=== PATIENT | female | born 1985 | race African-American/Black ===

== ENCOUNTER 2020-07-05 11:32 | Emergency (ER) | payer MEDICAID, OTHER ==
[~2020-07-05] VITALS: Ht 170.2 cm; Wt 82.1 kg
--- NOTE | 2020-07-05 11:50 | NUR ---
Dr Blackman at the bedside for MSE.
--- NOTE | 2020-07-05 12:11 | NUR ---
Pt out of ER for CT.
--- NOTE | 2020-07-05 12:25 | NUR ---
Pt back from CT, resting in bed.
[2020-07-05] MEDS: AMLODIPINE 5 MG TABLET PO ONE (12:34)
[2020-07-05] MEDS ORDERED: AMLO-212 PO (12:34)
[2020-07-05] MEDS ORDERED: AMLODIPINE 5 MG TABLET ONE (12:39)
[2020-07-05 12:40] VITALS: BP 159/89
--- NOTE | 2020-07-05 12:41 | NUR ---
Patient discharged to home in stable condition. Written and verbal after care instructions given. Patient verbalizes understanding of instructions. Stressed follow up or return to ER for worsening s/s.
== END 2020-07-05 12:41 | disposition home or self-care (01) ==
LOC: ER 11:32
DX: R51.9 Headache, unspecified (principal); R03.0 Elevated blood-pressure reading, without diagnosis of hypertension; Z86.69 Personal history of other diseases of the nervous system and sense organs
CPT/HCPCS: 70450; A4663

== ENCOUNTER 2022-09-22 22:37 | Emergency (ER) | payer MEDICAID, OTHER ==
[~2022-09-22] VITALS: Ht 170.2 cm; Wt 75.3 kg
[~2022-09-22 22:37] MED LIST: AMLO-212 PO
[2022-09-23 01:14] LABS: HEMATOCRIT 36.1 % (31.2-41.9); MEAN CORPUSCULAR HEMOGLOBIN 31.2 uug (24.7-32.8); MEAN CORPUSCULAR VOLUME 93.8 fL (75.5-95.3); PLATELET COUNT (AUTO) 254 K/uL (179-408)
[2022-09-23 01:20] LABS: CARBON DIOXIDE 27 mmol/L (21-32); CHLORIDE 105 mmol/L (98-107); CREATININE 0.6 mg/dL (0.6-1.3); POTASSIUM 3.2 mmol/L (3.5-5.1); UREA NITROGEN, BLOOD 7 mg/dL (7-18)
[2022-09-23 01:26] LABS: ALANINE AMINOTRANSFERASE 24 U/L (14-59); ALKALINE PHOSPHATASE 55 U/L (50-136); ASPARTATE AMINOTRANSFERASE 10 U/L (15-37); BILIRUBIN,DIRECT 0.1 mg/dL (0.0-0.2); BILIRUBIN,TOTAL 0.1 mg/dL (0.2-1.0); TOTAL PROTEIN, SERUM 6.5 g/dL (6.4-8.2)
--- NOTE | 2022-09-23 03:10 | NUR ---
Patient discharged to home in stable condition. Written and verbal after care instructions given. Patient verbalizes understanding of instructions. Stressed follow up or return to ER for worsening s/s. patient walked out with steady gait.
[2022-09-23 03:20] VITALS: BP 136/90; TEMP 97.2; O2SAT 98
== END 2022-09-23 03:21 | disposition home or self-care (01) ==
LOC: ER 22:37
DX: O20.0 Threatened abortion (principal); O99.511 Diseases of the respiratory system complicating pregnancy, first trimester; J45.909 Unspecified asthma, uncomplicated; G43.909 Migraine, unspecified, not intractable, without status migrainosus; Z79.899 Other long term (current) drug therapy; Z3A.11 11 weeks gestation of pregnancy
CPT/HCPCS: 36415; 76856; 85025; 85730; 86850; 86900; 86901; A4663

== ENCOUNTER 2025-01-22 11:11 | Emergency (ER) | payer BC, MEDICAID ==
[~2025-01-22] VITALS: Ht 170.2 cm; Wt 77.1 kg
[2025-01-22 11:20] VITALS: BP 168/100; O2SAT 97
[2025-01-22] MEDS ORDERED: TRAN650T2 PO (20:24)
== END 2025-01-22 13:24 | disposition left against medical advice (07) ==
LOC: ER 11:11
DX: O20.8 Other hemorrhage in early pregnancy (principal); I10 Essential (primary) hypertension; J45.909 Unspecified asthma, uncomplicated; Z87.59 Personal history of other complications of pregnancy, childbirth and the puerperium; Z3A.00 Weeks of gestation of pregnancy not specified
CPT/HCPCS: 76856; A4606; A4663

== ENCOUNTER 2025-01-22 17:49 | Emergency (ER) | payer BC, MEDICAID ==
[~2025-01-22] VITALS: Ht 170.2 cm; Wt 77.1 kg
[2025-01-22 18:20] LABS: PLATELET COUNT (AUTO) 268 K/uL (179-408); RED BLOOD CELL COUNT(AUTO) 3.89 MIL/uL (3.63-4.92); RED CELL DISTRIBUTION WIDTH 13.2 % (12.3-17.7); WHITE BLOOD COUNT (AUTO) 9.9 K/uL (3.8-11.8)
[2025-01-22] MEDS: IV NORMAL SALINE 1000 ML BAG IV ONE (18:26)
[2025-01-22 18:36] LABS: ASPARTATE AMINOTRANSFERASE 10.0 U/L (15-37); CREATININE 0.7 mg/dL (0.6-1.3); SODIUM SERUM 140.0 mmol/L (136-145); TOTAL PROTEIN, SERUM 6.8 g/dL (6.4-8.2); UREA NITROGEN, BLOOD 8.0 mg/dL (7-18)
[2025-01-22] MEDS: POTASSIUM BICARBONATE/CIT AC 25 MEQ TABLET.EFF PO ONE (19:36)
[2025-01-22 20:15] VITALS: BP 120/65
[2025-01-22] MEDS ORDERED: TRANEXAMIC ACID 1,000 MG/10 ML VIAL ONE (20:24)
[2025-01-22] MEDS ORDERED: TRAN650T2 PO (20:24)
[2025-01-22] MEDS: TRANEXAMIC ACID 1,000 MG/10 ML VIAL IV ONE (20:30)
[2025-01-22] MEDS ORDERED: IBUPROFEN 400 MG TABLET ONE (21:11)
[2025-01-22] MEDS: IBUPROFEN 400 MG TABLET PO ONE (21:14)
[2025-01-22] MEDS ORDERED: KETOROLAC TROMETHAMINE 30 MG INJ ONE (21:50)
[2025-01-22] MEDS: KETOROLAC TROMETHAMINE 30 MG INJ IM ONE (21:55)
[2025-01-22] MEDS: TRAMADOL HCL 50 MG TABLET PO ONE (22:07)
[2025-01-22 22:32] VITALS: BP 119/68; O2SAT 98
== END 2025-01-22 22:29 | disposition home or self-care (01) ==
LOC: ER 17:51
DX: O20.9 Hemorrhage in early pregnancy, unspecified (principal); I10 Essential (primary) hypertension; G43.909 Migraine, unspecified, not intractable, without status migrainosus; J45.909 Unspecified asthma, uncomplicated; N93.9 Abnormal uterine and vaginal bleeding, unspecified; Z3A.00 Weeks of gestation of pregnancy not specified
CPT/HCPCS: 99284; 76856; 80076; 80048; 85025; 86850; 86900; 86901; 84702; 36415; 83605; J1885; J7040; A4606; A4663